=== PATIENT | male | born 1950 | race Caucasian/White ===

== ENCOUNTER 2019-08-11 05:55 | Day surgery (SDC) | payer OTHER ==
[2019-08-10 11:08] VITALS: BMI 39.2
--- NOTE | 2019-08-11 10:17 | OP ---
DATE OF PROCEDURE: 08/11/2019 PRIMARY CARE PHYSICIAN: Rusty Sanon MD [employer] SURGEON: None. PROCEDURE PERFORMED: Colonoscopy with snare polypectomy. INDICATIONS: 1. History of colon polyps. 2. IBS. 3. Right lower quadrant pain. MEDICATIONS: See Anesthesia record. FINDINGS: After discussion of the risks, benefits, and alternatives of the procedure, informed consent was obtained and witnessed. Pre-endoscopic cardiopulmonary examination was satisfactory. Time-out was performed before sedation was achieved. Sedation was achieved with Anesthesia assistance in the endoscopy unit. Digital rectal exam was performed, which demonstrated large external hemorrhoidal skin tags. A Pentax adult colonoscope was inserted into the anus and passed forward to the cecum in the usual fashion. The cecal base was identified by the appendiceal orifice as well as the ileocecal valve. The terminal ileum was intubated and the ileal mucosa appeared normal. The colonoscope was slowly withdrawn in a gradual and circumferential manner with careful examination of the entire colonic mucosa. The quality of the prep was good. In the cecum, there was a small polyp, measuring 1 mm in diameter. This was completely removed with cold snare and retrieved for pathology. In the descending colon, there was a polyp measuring 2 mm in diameter, which was completely removed with cold snare and retrieved for pathology. There was another polyp in the descending colon, which was 6 mm in diameter. This was completely removed with hot snare and retrieved for pathology. There was scattered diverticulosis throughout the colon, most pronounced in the sigmoid colon. Retroflexion in the rectum demonstrated large internal hemorrhoids. The colonoscope was completely withdrawn and the patient allowed to recover. The patient tolerated the procedure well. There were no immediate postprocedure complications. IMPRESSION: 1. 1 mm cecal polyp, completely removed with cold snare and retrieved for pathology. 2. 2 mm descending colon polyp, completely removed with cold snare and retrieved for pathology. 3. 6 mm descending colon polyp, completely removed with hot snare and retrieved for pathology. 4. Scattered diverticulosis. 5. Internal and external hemorrhoids. RECOMMENDATIONS: 1. Follow up pathology on the colon polyps. 2. Repeat colonoscopy interval to be based on pathology results. We will contact the patient with results. 3. Follow up in [facility] Clinic as needed. Job ID: [id number]
[2019-08-11] MEDS ORDERED: EPHEDRINE 25 MG/5 ML SYRINGE ONE (10:23)
[2019-08-11] MEDS ORDERED: PROPOFOL 200 MG/20 ML VIAL ONE (10:23)
== END 2019-08-11 09:00 | disposition home or self-care (01) ==
LOC: SDC 05:55
PROVIDERS: ATTEND Internal Medicine
PROC: 0DBM8ZZ Excision of Descending Colon, Via Natural or Artificial Opening Endoscopic (ICD-10-PCS; principal; 2019-08-11)
PROC: 0DBH8ZZ Excision of Cecum, Via Natural or Artificial Opening Endoscopic (ICD-10-PCS; principal; 2019-08-11)
DX: R10.31 Right lower quadrant pain (principal); D12.0 Benign neoplasm of cecum; D12.4 Benign neoplasm of descending colon; K57.30 Diverticulosis of large intestine without perforation or abscess without bleeding; K64.4 Residual hemorrhoidal skin tags; K64.8 Other hemorrhoids; K58.9 Irritable bowel syndrome, unspecified; I48.19 Other persistent atrial fibrillation; I42.8 Other cardiomyopathies; R60.0 Localized edema; I10 Essential (primary) hypertension; Z86.010 Personal history of colon polyps; Z79.01 Long term (current) use of anticoagulants; Z79.899 Other long term (current) drug therapy; Z86.73 Personal history of transient ischemic attack (TIA), and cerebral infarction without residual deficits; Z96.653 Presence of artificial knee joint, bilateral; Z90.49 Acquired absence of other specified parts of digestive tract; Z98.890 Other specified postprocedural states; Z88.8 Allergy status to other drugs, medicaments and biological substances; Z87.442 Personal history of urinary calculi
CPT/HCPCS: 88305; J2704